=== PATIENT | male | born 1950 | race Caucasian/White ===

== ENCOUNTER 2022-01-27 06:49 | Inpatient (IN) | payer MEDICARE ==
[2022-01-27 07:06] LABS: #Eosinphils 0.1 thou/uL (0.0-0.7); #Lymphocytes 1.1 thou/uL (1.20-3.40); #Monocytes 0.4 thou/uL (0.11-0.59); #Neutrophils 2.6 thou/uL (1.40-6.50); %Basophils 0.6 % (0.0-1.0); %Lymphocytes 25.3 % (21.0-51.0); %Monocytes 10.3 % (0.0-10.0); %Neutrophils 60.9 % (42.0-75.0); Hemoglobin 15.8 g/dL (14.0-18.0); Mean Corpuscular HGB CONC 34.4 g/dL (32.0-36.0); Platelet Count 191 thou/uL (130-400); RBC Distribution Width 11.1 % (11.5-14.5); Red Blood Cell (RBC) Count 4.64 mill/uL (4.70-6.10); White Blood Cell (WBC) Count 4.2 thou/uL (4.8-10.8)
[2022-01-27 07:22] LABS: INR-International Normal Ratio 0.9; Prothrombin Time 12.6 sec (12.0-14.7)
[2022-01-27 07:23] LABS: Anion Gap 12 mmol/L (10-20); BUN (Urea Nitrogen) 17 mg/dL (8.4-25.7); Calc. Creatinine Clearance 0 mL/min (70-130); Carbon Dioxide 28 mmol/L (23-31); Chloride 102 mmol/L (98-107); PTT 34.2 sec (22.9-36.1); Potassium 4.2 mmol/L (3.5-5.1); Sodium 138 mmol/L (136-145)
[2022-01-27 07:24] LABS: ALT (SGPT) 18 U/L (8-55); AST (SGOT) 21 U/L (5-34); Albumin 3.8 g/dL (3.4-4.8); Alkaline Phosphatase 94 U/L (40-110); Bilirubin, Total 0.8 mg/dL (0.2-1.2); CK (CPK) 94 U/L (30-200); Calcium 9.3 mg/dL (7.8-10.44); Globulin 2.9 g/dL (2.4-3.5); Glucose 113 mg/dL (80-115); Protein, Total 6.7 g/dL (5.8-8.1)
[2022-01-27] MEDS ORDERED: Bisacodyl 10 MG SUPP PR PRN (08:11)
[2022-01-27] MEDS ORDERED: Senokot S 8.6-50 MG TAB PO PRN (08:11)
[2022-01-27] MEDS ORDERED: Labetalol HCl 100 MG/20 ML VIAL SLOW IVP PRN (08:11)
[2022-01-27] MEDS ORDERED: Acetaminophen 325 MG TAB PO PRN (08:11)
[2022-01-27] MEDS ORDERED: Milk Of Magnesia 30 ML UDCUP PO PRN (08:11)
[2022-01-27] MEDS ORDERED: TPA Communication Order-Pharmacy FS SCH (08:11)
[2022-01-27] MEDS ORDERED: hydrALAZINE 20 MG/ML VIAL SLOW IVP PRN (08:11)
[2022-01-27] MEDS ORDERED: Ondansetron PF 4 MG/2 ML Vial IVP PRN (08:11)
[2022-01-27] MEDS ORDERED: niCARdipine 25 MG in Sodium Chloride 0.9% 250 ML 250 ML IVPB PRN (08:11)
[2022-01-27] MEDS ORDERED: Docusate 100 MG CAP PO PRN (08:11)
[2022-01-27] MEDS ORDERED: Ondansetron ODT 4 MG TAB PO PRN (08:11)
[2022-01-27 08:42] LABS: Hemoglobin A1c 4.8 % (4.0-6.0)
[2022-01-27 09:23] LABS: SARS-CoV-2 NAA Rapid Test Not Detected (NotDetected)
[2022-01-27] MEDS ORDERED: Sodium Chloride 0.9% 1,000 ML IV SCH (10:45)
[2022-01-27 12:34] VITALS: BMI 21.4
[2022-01-27] MEDS: Famotidine/PF 20 mg/2ml Vial SLOW IVP SCH ×2 (13:39→20:38)
[2022-01-27] MEDS ORDERED: ISOVUE-370 76%-LOCM 1 ML ONE (13:48)
[2022-01-27] MEDS: Famotidine 20 MG TAB PO SCH ×2 (15:35→20:37)
[2022-01-27] MEDS: Atorvastatin Calcium 40 MG TAB PO SCH (20:37)
[2022-01-27] MEDS: Escitalopram Oxalate 10 mg Tablet PO SCH (20:38)
[2022-01-28 03:25] LABS: #Eosinphils 0.1 thou/uL (0.0-0.7); #Monocytes 0.7 thou/uL (0.11-0.59); #Neutrophils 3.1 thou/uL (1.40-6.50); %Basophils 0.8 % (0.0-1.0); %Eosinophils 2.7 % (0.0-10.0); %Lymphocytes 19.5 % (21.0-51.0); %Monocytes 13.6 % (0.0-10.0); %Neutrophils 63.3 % (42.0-75.0); Hemoglobin 15.6 g/dL (14.0-18.0); Mean Corpuscular HGB CONC 33.2 g/dL (32.0-36.0); Mean Corpuscular Volume 99.2 fL (78.0-98.0); Mean Platelet Volume 8.4 fL (7.4-10.4); Platelet Count 207 thou/uL (130-400); RBC Distribution Width 11.3 % (11.5-14.5); Red Blood Cell (RBC) Count 4.72 mill/uL (4.70-6.10); White Blood Cell (WBC) Count 4.9 thou/uL (4.8-10.8)
[2022-01-28 03:48] LABS: ALT (SGPT) 16 U/L (8-55); AST (SGOT) 23 U/L (5-34); Albumin 3.6 g/dL (3.4-4.8); Alkaline Phosphatase 86 U/L (40-110); Anion Gap 13 mmol/L (10-20); BUN (Urea Nitrogen) 12 mg/dL (8.4-25.7); Bilirubin, Direct 0.3 mg/dL (0.1-0.3); Bilirubin, Total 0.9 mg/dL (0.2-1.2); Calc. Creatinine Clearance 78 mL/min (70-130); Calcium 9.1 mg/dL (7.8-10.44); Carbon Dioxide 25 mmol/L (23-31); Cardiac Risk 3.4 (Less than 4.5); Chloride 106 mmol/L (98-107); Cholesterol 211 mg/dl (< 200 Desired); Glucose 85 mg/dL (80-115); HDL Cholesterol 62 mg/dL (>60 Neg Risk); LDL Cholesterol, Calculated 132 mg/dL; Magnesium 2.1 mg/dL (1.6-2.6); Potassium 4.3 mmol/L (3.5-5.1); Protein, Total 6.5 g/dL (5.8-8.1); Sodium 140 mmol/L (136-145); Triglycerides 85 mg/dL (Less than 150)
[2022-01-28] MEDS ORDERED: Calcium Carbonate 500 MG ChewTAB PO PRN (08:23)
[2022-01-28] MEDS ORDERED: HYDROcodone/Acetaminophen 5/325 mg Tablet PO PRN (08:23)
[2022-01-28] MEDS ORDERED: GUAIFENESIN SF SOLN 200 MG/10 ML UDCUP PO PRN (08:23)
[2022-01-28] MEDS ORDERED: Loperamide HCl 2 MG CAP PO PRN (08:23)
[2022-01-28] MEDS ORDERED: Cepastat Lozenges 1 LOZ PO PRN (08:23)
[2022-01-28] MEDS ORDERED: Artificial Tear Sol 15 ML BOT EA EYE PRN (08:23)
[2022-01-28] MEDS ORDERED: Moisturizing Cream (Eucerin) 113 GM JAR TOP PRN (08:23)
[2022-01-28] MEDS ORDERED: Loratadine 10 MG TAB PO PRN (08:23)
[2022-01-28] MEDS ORDERED: Sodium Chloride 0.65% Nasal 44 ML BOT EA NARE PRN (08:23)
[2022-01-28] MEDS ORDERED: Escitalopram Oxalate 10 mg Tablet PO SCH (09:00)
[2022-01-28] MEDS ORDERED: Aspirin 81 mg Enteric Coated Tablet PO SCH (10:00)
[2022-01-28] MEDS: Famotidine/PF 20 mg/2ml Vial SLOW IVP SCH ×2 (10:40→22:19)
[2022-01-28] MEDS: Famotidine 20 MG TAB PO SCH ×2 (10:40→21:13)
[2022-01-28] MEDS: Escitalopram Oxalate 10 mg Tablet PO SCH (21:14)
[2022-01-28] MEDS: Atorvastatin Calcium 40 MG TAB PO SCH (21:14)
[2022-01-29 05:03] LABS: %Lymphocytes 19.1 % (21.0-51.0); %Monocytes 13.6 % (0.0-10.0); Hemoglobin 14.9 g/dL (14.0-18.0); Mean Corpuscular HGB CONC 33.4 g/dL (32.0-36.0); Mean Corpuscular Hemoglobin 33.4 pg (27.0-31.0); Mean Corpuscular Volume 99.8 fL (78.0-98.0); Mean Platelet Volume 6.7 fL (7.4-10.4); Platelet Count 189 thou/uL (130-400); RBC Distribution Width 11.1 % (11.5-14.5); Red Blood Cell (RBC) Count 4.46 mill/uL (4.70-6.10)
[2022-01-29 05:04] LABS: #Eosinphils 0.2 thou/uL (0.0-0.7); #Monocytes 0.7 thou/uL (0.11-0.59); #Neutrophils 3.2 thou/uL (1.40-6.50); %Basophils 0.6 % (0.0-1.0); %Eosinophils 3.7 % (0.0-10.0)
[2022-01-29 06:28] LABS: Anion Gap 11 mmol/L (10-20); BUN (Urea Nitrogen) 17 mg/dL (8.4-25.7); Calc. Creatinine Clearance 68 mL/min (70-130); Calcium 9.3 mg/dL (7.8-10.44); Carbon Dioxide 26 mmol/L (23-31); Chloride 106 mmol/L (98-107); Glucose 90 mg/dL (80-115); Magnesium 2.1 mg/dL (1.6-2.6); Potassium 4.3 mmol/L (3.5-5.1); Sodium 139 mmol/L (136-145)
[2022-01-29] MEDS ORDERED: Aspirin 81 mg Enteric Coated Tablet PO SCH (09:00)
[2022-01-29] MEDS: Famotidine 20 MG TAB PO SCH (09:10)
[2022-01-29 11:49] VITALS: BP 122/66
[2022-01-29 12:42] VITALS: TEMP 98.2
== END 2022-01-29 13:35 | disposition home or self-care (01) | DRG 63 ==
LOC: ERS 06:49 → SUATTDRO 06:49 → CCU 08:17 → NEURO 01-28 15:51
PROVIDERS: ADMIT Hospitalist; ATTEND Internal Medicine
DX: I63.512 Cerebral infarction due to unspecified occlusion or stenosis of left middle cerebral artery (principal); R29.704 NIHSS score 4; Z20.822 Contact with and (suspected) exposure to COVID-19; G43.809 Other migraine, not intractable, without status migrainosus; R47.81 Slurred speech; R29.810 Facial weakness; G83.21 Monoplegia of upper limb affecting right dominant side; R47.1 Dysarthria and anarthria; I65.23 Occlusion and stenosis of bilateral carotid arteries; D86.9 Sarcoidosis, unspecified; E78.5 Hyperlipidemia, unspecified; Z98.49 Cataract extraction status, unspecified eye; Z90.79 Acquired absence of other genital organ(s); Z90.49 Acquired absence of other specified parts of digestive tract; Z82.3 Family history of stroke; Z85.46 Personal history of malignant neoplasm of prostate
CPT/HCPCS: 36415; 70450; 70496; 70498; 70551; 71045; 80048; 80053; 80061; 80076; 82550; 83036; 83735; 84443; 84484; 85025; 85610; 85652; 85730; 86140; 86850; 86900; 86901; 93005; 93306; 96365; 96376; J2997; Q9966